=== PATIENT | male | born 1985 | race Caucasian/White ===

== ENCOUNTER 2020-02-21 09:18 | Emergency (ER) | payer SELFPAY | END 2020-02-21 09:32 | disposition home or self-care (01) | LOC: BURERS 09:18 | DX: Z76.0 Encounter for issue of repeat prescription (principal); F32.9 Major depressive disorder, single episode, unspecified; F41.9 Anxiety disorder, unspecified; F17.210 Nicotine dependence, cigarettes, uncomplicated | CPT/HCPCS: 99281 ==

== ENCOUNTER 2020-03-10 17:54 | Emergency (ER) | payer SELFPAY ==
[2020-03-10] MEDS ORDERED: Ketorolac Tromethamine 30 MG/ML VIAL ONE (18:18)
[2020-03-10] MEDS ORDERED: Fentanyl 100 MCG/2 ML VIAL ONE ×2 (18:18→18:41)
[2020-03-10 18:36] LABS: ALT (SGPT) 16 U/L (8-55); AST (SGOT) 26 U/L (5-34); Albumin 4.6 g/dL (3.5-5.0); Alkaline Phosphatase 91 U/L (40-110); Anion Gap 15 mmol/L (10-20); BUN (Urea Nitrogen) 9 mg/dL (8.9-20.6); Bilirubin, Total 0.3 mg/dL (0.2-1.2); Calc. Creatinine Clearance 0 mL/min (70-130); Carbon Dioxide 26 mmol/L (22-29); Chloride 104 mmol/L (98-107); Estimated GFR-MDRD Greater than 90; Globulin 2.6 g/dL (2.4-3.5); Glucose 100 mg/dL (70-105); Potassium 3.9 mmol/L (3.5-5.1); Protein, Total 7.2 g/dL (6.0-8.3)
[2020-03-10 18:46] LABS: #Basophils 0.1 thou/uL (0.0-0.2); #Eosinphils 0.1 thou/uL (0.0-0.7); #Lymphocytes 2.7 thou/uL (1.20-3.40); #Monocytes 0.8 thou/uL (0.11-0.59); %Basophils 1.3 % (0.0-1.0); %Eosinophils 0.7 % (0.0-10.0); %Monocytes 7.6 % (0.0-10.0); %Neutrophils 65.4 % (42.0-75.0); Hemoglobin 15.2 g/dL (14.0-18.0); MDiff Complete? YES; Macrocytosis SLIGHT = 6-15 cells (100X) (0-5/hpf); Mean Corpuscular HGB CONC 31.2 g/dL (32.0-36.0); Mean Corpuscular Hemoglobin 32.9 pg (27.0-31.0); Platelet Count 221 thou/uL (130-400); RBC Distribution Width 12.2 % (11.5-14.5); Red Blood Cell (RBC) Count 4.62 mill/uL (4.70-6.10); White Blood Cell (WBC) Count 10.7 thou/uL (4.8-10.8)
[2020-03-10 19:00] LABS: Sodium 141 mmol/L (136-145)
--- NOTE | 2020-03-11 06:23 | RAD ---
AP PORTABLE CHEST: 03/10/2020 1819 HOURS FINDINGS: An AP portable film at 1819 hours shows a normal sized heart and clear lungs. No infiltrate or effusi on is seen. No fractures are evident. The mediastinum appears normal. IMPRESSION: No acute thoracic finding. POS: HOME
== END 2020-03-10 19:13 | disposition home or self-care (01) ==
LOC: BURERS 17:54
DX: S29.011A Strain of muscle and tendon of front wall of thorax, initial encounter (principal); X50.0XXA Overexertion from strenuous movement or load, initial encounter
CPT/HCPCS: 71045; 80053; 84484; 85025; 93005; 96374; 96375; J1885; J3010

== ENCOUNTER 2020-11-26 15:30 | Emergency (ER) | payer SELFPAY ==
[2020-11-26] MEDS ORDERED: Tetracaine 0.5% PF 4 ML BOT ONE (15:59)
[2020-11-26] MEDS ORDERED: Fluorescein Opthalmic Strip ONE (16:07)
[2020-11-26] MEDS ORDERED: traMADol HCl 50 MG TAB ONE (16:19)
== END 2020-11-26 16:50 | disposition home or self-care (01) ==
LOC: BURERS 15:30
DX: S05.01XA Injury of conjunctiva and corneal abrasion without foreign body, right eye, initial encounter (principal); F17.210 Nicotine dependence, cigarettes, uncomplicated; X58.XXXA Exposure to other specified factors, initial encounter
CPT/HCPCS: 99283